=== PATIENT | male | born 1950 | race Caucasian/White ===

== ENCOUNTER → 2017-03-21 | Outpatient (CLI) | payer OTHER, MEDICARE | LOC: BMCIMAGING 13:54 | PROVIDERS: ATTEND Physician Assistant | DX: M17.12 Unilateral primary osteoarthritis, left knee (principal) ==

== ENCOUNTER → 2017-09-06 | Outpatient (CLI) | payer OTHER, MEDICARE | LOC: BHFA 15:45 | PROVIDERS: ATTEND Internal Medicine Cardiovascular Disease | DX: I35.9 Nonrheumatic aortic valve disorder, unspecified (principal) ==

== ENCOUNTER → 2017-09-26 | Outpatient (CLI) | payer OTHER, MEDICARE | LOC: BHFA 15:00 | PROVIDERS: ATTEND Internal Medicine Cardiovascular Disease | DX: Z95.2 Presence of prosthetic heart valve (principal) ==